=== PATIENT | male | born 2000 | race Caucasian/White ===

== ENCOUNTER 2025-01-13 12:58 | Outpatient (RCR) | payer BC | END 2025-01-17 | LOC: M PT 12:58 | DX: M25.851 Other specified joint disorders, right hip (principal); M25.852 Other specified joint disorders, left hip ==

== ENCOUNTER 2025-01-19 15:15 | Outpatient (RCR) | payer BC | END 2025-02-16 | LOC: M PT 15:15 | DX: M25.851 Other specified joint disorders, right hip (principal); M25.852 Other specified joint disorders, left hip ==